=== PATIENT | male | born 1960 | race Caucasian/White ===

== ENCOUNTER 2021-05-30 11:40 | Emergency (ER) | payer MEDICAID ==
[~2021-05-30] VITALS: Ht 177.8 cm; Wt 160.0 kg
[2021-05-30 16:03] VITALS: BP 134/73
--- NOTE | 2021-05-30 17:57 | NUR ---
TASK RN: PT DC BY DARIANA INFANTE. SEE PA NOTE REGARDING SW CONSULT AND COVID HOUSING DC.
== END 2021-05-30 18:18 | disposition home or self-care (01) ==
LOC: ED 17:50
DX: B34.9 Viral infection, unspecified (principal); Z20.822 Contact with and (suspected) exposure to COVID-19; I45.10 Unspecified right bundle-branch block; J44.9 Chronic obstructive pulmonary disease, unspecified; E66.01 Morbid (severe) obesity due to excess calories; Z68.43 Body mass index [BMI] 50.0-59.9, adult
CPT/HCPCS: 71045; 93005; 99285; U0003; U0005